=== PATIENT | female | born 1950 ===

== ENCOUNTER 2023-05-12 18:58 | Emergency (ER) | payer MEDICARE, BC | END 2023-05-12 20:53 | disposition home or self-care (01) | LOC: MW.ED 18:58 | DX: S05.12XA Contusion of eyeball and orbital tissues, left eye, initial encounter (principal); I10 Essential (primary) hypertension; E78.00 Pure hypercholesterolemia, unspecified; Z79.899 Other long term (current) drug therapy; Z88.0 Allergy status to penicillin; Z91.030 Bee allergy status; Z88.8 Allergy status to other drugs, medicaments and biological substances; W10.8XXA Fall (on) (from) other stairs and steps, initial encounter | CPT/HCPCS: 70450; 70450-26; 70486; 70486-26; 99283 ==